=== PATIENT | female | born 1945 | race Caucasian/White ===

== ENCOUNTER 2019-01-13 12:51 | Emergency (ER) | payer MEDICARE ==
[2019-01-13 13:03] VITALS: BP 113/68
--- NOTE | 2019-01-13 13:16 | UC ---
Eye Complaint HPI - HPI Summary HPI Summary: Patient is 73 year old female , who presents today to the urgent care with right eye symptoms for past 3 days days. Reports red itchy right eye. Denies drainage or crustiness. No trauma or a possible foreign body . There is some pain. Denies any fever, chills, cough chest pain or shortness of breath . Denies any abdominal pain , nausea or vomiting , diarrhea or constipation. - History of Current Complaint Chief Complaint: UCEye Stated Complaint: EYE COMPLAINT Time Seen by Provider: 01/13/19 13:06 Hx Obtained From: Patient Pain Intensity: 1 - Allergies/Home Medications Allergies/Adverse Reactions: Allergies Allergy/AdvReac Type Severity Reaction Status Date / Time amoxicillin Allergy Itching Verified 01/13/19 13:04 citalopram [From Celexa] Allergy Tachycardia Verified 01/13/19 13:04 doxycycline Allergy Itching Verified 01/13/19 13:04 erythromycin base Allergy Nausea Verified 12/20/18 15:04 nefazodone [From Serzone] Allergy See Comment Verified 01/13/19 13:04 sulfamethoxazole Allergy Itching Verified 01/13/19 13:04 [From Septra] trimethoprim [From Septra] Allergy Itching Verified 01/13/19 13:04 decongestant AdvReac Insomnia Uncoded 01/13/19 13:04 PMH/Surg Hx/FS Hx/Imm Hx - Additional Past Medical History Additional PMH: Past Medical History : Diabetes mellitus, fibromyalgia Past Surgical History: Hysterectomy Family History : non contributory Social History : No alcohol, former smoker, no drug use. Previously Healthy: Yes - Surgical History Surgical History: None Surgery Procedure, Year, and Place: hyster - Family History Known Family History: Positive: Non-Contributory - Social History Alcohol Use: None Substance Use Type: None Smoking Status (MU): Former Smoker Review of Systems All Other Systems Reviewed And Are Negative: Yes Constitutional: Positive: Negative Skin: Positive: Negative Eyes: Positive: Eye Redness - Right eye ENT: Positive: Negative Respiratory: Positive: Negative Cardiovascular: Positive: Negative Gastrointestinal: Positive: Negative Genitourinary: Positive: Negative Motor: Positive: Negative Neurovascular: Positive: Negative Musculoskeletal: Positive: Negative Neurological: Positive: Negative Psychological: Positive: Negative Is Patient Immunocompromised?: No Physical Exam - Summary Physical Exam Summary: Physical Exam: Const: Appears well. No signs of apparent distress present. Alert and oriented x 3. Musculo: Walks with a normal gait. Head/Face: Atraumatic, normocephalic on inspection. Eyes: EOMI and PERRLA in both eyes. No discharge noted . There is a small erythematous swelling of the lower eyelid along with mild erythema of the associated palpable conjunctiva. No bulbar conjunctiva erythematous noted. No foreign body identified. ENT: Hearing normal, Respiratory: Respirations are unlabored. Lungs clear to auscultation bilaterally, no wheezing , rhonchi or rales noted . CVS: Regular rate and Rhythm, S1S2 normal , no murmurs identified. Extremities: Peripheral circulation is grossly normal. Pulses 2+ Abdomen : Soft non tender , nondistended , Bowel sounds present . No guarding , rebound tenderness or rigidity noted. Skin: No lesions or rash located on the upper extremities or on the lower extremities. Neuro: Cranial nerves II to XII intact, motor and sensory intact. DTR Intact bilaterally. Mood is normal. Affect is normal. Triage Information Reviewed: Yes Vital Signs: Initial Vital Signs Temp 97 F 01/13/19 12:57 Pulse 69 01/13/19 12:57 Resp 18 01/13/19 12:57 BP 113/68 01/13/19 12:57 Pulse Ox 97 01/13/19 12:57 Vital Signs Reviewed: Yes Eye Complaint Course/Dx - Course Course Of Treatment: stye of the right lower eyelid. We discussed the findings and further plan. I will prescribe the antibiotic eye drops to the pharmacy . Be traveling to [place] tomorrow and advised her to follow-up with ophthalmology if if symptoms get worse Patient expressed understanding . - Differential Dx/Diagnosis Provider Diagnosis: [facility] Discharge ED - Sign-Out/Discharge Documenting (check all that apply): Patient Departure All imaging exams completed and their final reports reviewed: No Studies - Discharge Plan Condition: Stable Disposition: HOME Prescriptions: Ciprofloxacin 0.3% OPTH.CLAUS* [Cipro 0.3% Opth*] 1 drop RIGHT EYE Q6H 7 Days #1 btl Patient Education Materials: [facility] (ED) Referrals: Mary Sequeira MD [Primary Care Provider] - Joey Diana MD [Medical Doctor] - If Needed Additional Instructions: Please start using the eye drops as prescribed to the pharmacy . Warm compresses will be helpful Since you are traveling tomorrow to [place] monitor for any worsening and see an project account manager immediately if there is any worsening when you are in [place]. Patients blood pressure slightly high in Urgent care today , plan follow up with PCP for better control within 1 month Return to Urgent care / ER if symptoms get worse. - Billing Disposition and Condition Condition: STABLE Disposition: Home
== END 2019-01-13 13:35 | disposition home or self-care (01) ==
LOC: UCEAST 12:51
DX: H00.012 Hordeolum externum right lower eyelid (principal); E11.9 Type 2 diabetes mellitus without complications; Z87.891 Personal history of nicotine dependence; Z88.2 Allergy status to sulfonamides
CPT/HCPCS: 99212; G0463